=== PATIENT | female | born 2000 | race Caucasian/White ===

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

== ENCOUNTER → 2022-01-26 15:35 | Outpatient (BNVA) | payer BC, SELFPAY | PROVIDERS: PCP Family Medicine; Visit Provider Registered Nurse Neonatal Intensive Care | DX: R05.9 Cough, unspecified (principal); J02.9 Acute pharyngitis, unspecified | CPT/HCPCS: 87071; 87880 ==

== ENCOUNTER 2022-03-27 19:20 | Emergency (ER) | payer BC, MEDICAID, SELFPAY ==
[2022-03-27 19:25] VITALS: BP 124/74; PULSE 110; RESP 16; TEMP 36.6; O2SAT 99
[2022-03-27] MEDS: ondansetron 2 mg/ML SDV 2 mL 4 MG IVP ×2 (20:10→22:55)
[2022-03-27 20:15] LABS: Basophils % 0.2 %; Eosinophils % 0.1 %; Hematocrit 41.7 % (37.0-47.0); Lymphocytes # 1.1 10^3/uL (1.5-6.5); Lymphocytes % 6.2 %; Mean Corpuscular HGB Conc 33.6 g/dL (30.0-36.0); Mean Corpuscular Hemoglobin 31.7 pg (28.0-34.0); Mean Corpuscular Volume 94.6 fl (81-99); Mean Platelet Volume 9.8 fL (7.4-10.4); Monocytes # 1.3 10^3/uL (0.2-0.9); Monocytes % 7.7 %; Neutrophils % 85.4 %; Nucleated Red Blood Cells % 0 %; Platelet Count 281 10^3/cmm (130-400); Red Blood Count 4.41 10^6/uL (4.1-5.3); Red Cell Distribution Width 10.7 % (12.1-15.1)
[2022-03-27] MEDS: sodium chloride 0.9% 1,000 ML 999 ML IV ×3 (20:16→23:40)
--- NOTE | 2022-03-27 20:23 | CTR_ITS ---
PROCEDURE INFORMATION: Exam: CT Abdomen And Pelvis With Contrast Exam date and time: 03/27/2022 8:52 PM Age: 21 years old Clinical indication: Vomiting; Abdominal pain; Generalized; Additional info: Abdominal pain, vomiting TECHNIQUE: Imaging protocol: Computed tomography of the abdomen and pelvis with contrast. Radiation optimization: All CT scans at this facility use at least one of these dose optimization techniques: automated exposure control; mA and/or kV adjustment per patient size (includes targeted exams where dose is matched to clinical indication); or iterative reconstruction. Contrast material: OMNI 350; Contrast volume: 75 ml; Contrast route: INTRAVENOUS (IV); Other protocol: This patient has received 0 known CTs and 0 known cardiac nuclear medicine studies in the 12 months prior to the current study. COMPARISON: No relevant prior studies available. RADIATION DOSE METRICS: Total DLP (mGy-cm): 327.36 FINDINGS: Lungs: Visualized lungs are clear. Pleural spaces: No pleural effusion. Liver: The visualized liver is unremarkable. Gallbladder and bile ducts: The gallbladder is unremarkable. No dilatation of the visualized bile ducts. Pancreas: The pancreas is unremarkable. No pancreatic ductal dilatation. Spleen: The visualized spleen is unremarkable. Small splenule in the left upper quadrant. Adrenal glands: The right and left adrenal glands are unremarkable. Kidneys and ureters: The right and left kidneys are unremarkable. The right and left ureters are unremarkable. Stomach and bowel: Fluid within the small bowel and colon without evidence of bowel wall thickening. Appendix: The appendix is visualized and is unremarkable. No findings to suggest acute appendicitis. Intraperitoneal space: No free intraperitoneal air. No ascites. No loculated fluid collections to suggest an abscess. Vasculature: No evidence for aortic aneurysm or aortic dissection. Lymph nodes: No lymphadenopathy. Urinary bladder: The bladder is incompletely filled, which can limit evaluation. No focal abnormality in the bladder however. Reproductive: Multiple subcentimeter follicles in both right and left ovaries. Dominant follicle in the left ovary measuring 1.5 x 1.1 cm (series 3, image 66). The uterus is unremarkable. Bones/joints: No acute fracture. Soft tissues: No acute abnormality in the extra-abdominal soft tissues. There is a soft tissue focus posterior to the rectum and anus extending superiorly to the level of the sacrococcygeal junction and extending from the midline into the right the pelvis, this measures 8.0 x 2.5 x 5.5 cm (series 6, image 32 in series 3, image 51). CT/CT abdomen pelvis w con* [id number] IMPRESSION: 1. Fluid within the small bowel and colon without evidence of bowel wall thickening. This may reflect viral gastroenteritis in the appropriate clinical situation. 2. Soft tissue focus posterior to the rectum and anus extending superiorly to the level of the sacrococcygeal junction and extending from the midline into the right the pelvis. Etiology is uncertain, a soft tissue mass cannot be ruled out however. Recommend clinical correlation. Further evaluation with MRI of the pelvis without and with contrast on a nonemergent basis may be obtained if it will change clinical management, and the patient has no contraindications. 3. Incidental/nonacute findings are listed in the report.
--- NOTE | 2022-03-27 20:24 | ED_ITS ---
HPI - Nausea/Vomiting/Diarrhea General: Chief complaint: Nausea/Vomiting/Diarrhea Stated complaint: n/v Time Seen by Provider: 03/27/22 19:55 Source: patient History of Present Illness: 21-year-old female has been sick since around 1:30 PM after she ate some chicken Bill. She notes continued lower abdominal pain and several episodes of vomiting. No fever. Some chills. No history of belly surgery. She is not . MD elicited complaint: nausea, vomiting and abdominal pain Onset (ago): hour(s) Description of vomiting: food contents and bloody (Blood-tinged) Associated nausea: Yes Associated abdominal pain: Yes Location of pain: Periumbilical and RLQ Radiation: diffuse Pain consistency: intermittent Severity: moderate Quality: cramping and aching Exacerbating factors: vomiting and movement Relieving factors: none Associated symtoms: Reports nausea; Denies change in vision, chest pain, cough, fevers/chills, headache(s) or short of breath Review of Systems Const: Reports: chills; Denies: fever(s) Eyes: Denies: change in vision ENMT: Reports: throat pain (Burning after vomiting) Card: Denies: chest pain Resp: Denies: dyspnea, productive cough or non-productive cough GI: Reports: abdominal pain, nausea and vomiting; Denies: diarrhea Neuro: Denies: headache(s) PFS ED PFSH: Medical History Psychiatric care Social History Smoking and tobacco status: never smoked Second hand smoke exposure: No Alcohol intake: never Desire information about alcohol rehabilitation?: No Desire information about substance/drug rehabilitation?: No Physical Exam Const: COMMON NORMALS: no acute distress GENERAL APPEARANCE: cooperative; not ill appearing and not frail appearing HENMT: COMMON NORMALS: normocephalic, atraumatic and Normal external nose present HEAD & SCALP: normocephalic and atraumatic FACE & SINUS: normal facial exam and face symmetric NOSE: Normal external nose present Eye: COMMON NORMALS: Equal, round and reactive pupils present and EOMs intact bilaterally PUPIL: Yes Equal, round and reactive pupils present Neck/C-Spine: GENERAL: Yes trachea midline Chest: CHEST: Yes Symmetrical chest wall rise Resp: COMMON NORMALS: normal respiratory effort, No retractions, No use of accessory muscles and clear to auscultation bilaterally AUSCULTATION: clear to auscultation bilaterally Cardio: COMMON NORMALS: regular rate and regular rhythm RATE: regular rate RHYTHM: regular rhythm GI: COMMON NORMALS: Normal to inspection, nondistended, normoactive bowel sounds present PALPATION: Yes Tenderness to palpation present (GI) Details: LLQ and RLQ and Yes Guarding due to palpation present (GI) : COMMON NORMALS: Yes no CVA tenderness BLADDER/KIDNEY EXAM: Yes no CVA tenderness Back/Pelvis: COMMON NORMALS: no CVA tenderness Extremity: COMMON NORMALS: no pedal edema Neuro: MAGALI COMA SCALE: document GCS findings Mitchell coma scale eye opening: Spontaneous Mitchell coma scale verbal response: Orientated Mitchell coma scale motor response: Obey commands Mitchell coma scale total score: 15 SENSORY EXAM: Yes extremities (intact) Psych: COMMON NORMALS: speech normal SPEECH: Yes normal speech Skin: COMMON NORMALS: no rashes or lesions noted GENERAL SKIN EXAM: no rashes or lesions noted Course Vital Signs: Vital signs: Vital Signs Temperature 97.8 F 03/27/22 19:25 Pulse Rate 88 03/28/22 02:22 Respiratory Rate 16 03/28/22 02:22 Blood Pressure 107/63 03/28/22 02:22 Pulse Oximetry 100 03/28/22 02:22 Oxygen Delivery Me thod 03/27/22 23:00 MDM - Nausea/Vomiting/Diarrhea Medical Decision Making Vitals are stable. White blood cell count was 17. Hemoglobin 14. Liver enzymes are normal. Urinalysis is negative. Lipase is 21. CRP is only 3. CT scan shows a significant gastroenteritis with fluid in the small bowel and colon without evidence of obstruction or thickening. Vomiting has essentially stopped, she has had several episodes of diarrhea now. She has had 3 L of fluid here, and is no longer tachycardic. CT also showed a right-sided soft tissue density in her pelvis musculature. This is of unknown origin. She was told about this. Outpatient follow-up is suggested. Lab Data 03/27/22 20:05 03/27/22 20:05 Radiology Impressions Abdomen/Pelvis CT 03/27/22 20:23 IMPRESSION: 1. Fluid within the small bowel and colon without evidence of bowel wall thickening. This may reflect viral gastroenteritis in the appropriate clinical situation. 2. Soft tissue focus posterior to the rectum and anus extending superiorly to the level of the sacrococcygeal junction and extending from the midline into the right the pelvis. Etiology is uncertain, a soft tissue mass cannot be ruled out however. Recommend clinical correlation. Further evaluation with MRI of the pelvis without and with contrast on a nonemergent basis may be obtained if it will change clinical management, and the patient has no contraindications. 3. Incidental/nonacute findings are listed in the report. 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 Laboratory Results WBC 17.0 10^3/uL (4.5-13.0) H 03/27/22 20:05 RBC 4.41 10^6/uL (4.1-5.3) 03/27/22 20:05 Hgb 14.0 g/dL (11.5-15.3) 03/27/22 20:05 Hct 41.7 % (37.0-47.0) 03/27/22 20:05 MCV 94.6 fl (81-99) 03/27/22 20:05 MCH 31.7 pg (28.0-34.0) 03/27/22 20:05 MCHC 33.6 g/dL (30.0-36.0) 03/27/22 20:05 RDW 10.7 % (12.1-15.1) L 03/27/22 20:05 Plt Count 281 10^3/cmm (130-400) 03/27/22 20:05 MPV 9.8 fL (7.4-10.4) 03/27/22 20:05 Neut % (Auto) 85.4 % 03/27/22 20:05 Lymph % (Auto) 6.2 % 03/27/22 20:05 [place] % (Auto) 7.7 % 03/27/22 20:05 Eos % (Auto) 0.1 % 03/27/22 20:05 Baso % (Auto) 0.2 % 03/27/22 20:05 Neut # (Auto) 14.50 10^3/uL (1.8-8.0) H 03/27/22 20:05 Lymph # (Auto) 1.1 10^3/uL (1.5-6.5) L 03/27/22 20:05 [place] # (Auto) 1.3 10^3/uL (0.2-0.9) H 03/27/22 20:05 Eos # (Auto) 0.0 10^3/uL (0.0-0.8) 03/27/22 20:05 Baso # (Auto) 0.0 10^3/uL (0.0-0.1) 03/27/22 20:05 Nucleated RBC % (auto) 0 % 03/27/22 20:05 Nucleated RBCs # 0.0 /100WBC 03/27/22 20:05 Sodium 138 mmol/L (136-145) 03/27/22 20:05 Potassium 3.6 mmol/L (3.5-5.1) 03/27/22 20:05 Chloride 100 mmol/L (98-107) 03/27/22 20:05 Carbon Dioxide 26 mmol/L (22-29) 03/27/22 20:05 Anion Gap 15.6 (5-19) 03/27/22 20:05 BUN 16 mg/dL (6-20) 03/27/22 20:05 Creatinine 0.8 mg/dL (0.5-0.9) 03/27/22 20:05 GFR Calculation 92.4 mL/min (90-130) 03/27/22 20:05 Glucose 112 mg/dL (65-115) 03/27/22 20:05 Calculated Osmolality 288 mOsm/kg (285-295) 03/27/22 20:05 Calcium 9.6 mg/dL (8.5-10.5) 03/27/22 20:05 Total Bilirubin 0.5 mg/dL (0.15-1.2) 03/27/22 20:05 AST 21 U/L (0-32) 03/27/22 20:05 ALT 11 U/L (0-33) 03/27/22 20:05 Alkaline Phosphatase 61 U/L (35-105) 03/27/22 20:05 C-Reactive Protein 3.0 mg/L (0.0-4.9) 03/27/22 20:05 Total Protein 7.3 g/dL (6.6-8.7) 03/27/22 20:05 Albumin 4.8 g/dL (3.5-5.2) 03/27/22 20:05 Globulin 2.5 g/dL (1.3-4.6) 03/27/22 20:05 Lipase 21 U/L (13-60) 03/27/22 20:05 HCG, Qual Negative (Negative) 03/27/22 20:05 Urine Color Colorless (Yellow) 03/27/22 23:12 Urine Appearance Clear (CLEAR) 03/27/22 23:12 Urine pH 5 (5-7) 03/27/22 23:12 Ur Specific [place] 1.010 (1.005-1.030) 03/27/22 23:12 Urine Protein Neg (Negative) 03/27/22 23:12 Urine Glucose (UA) Norm (Normal) 03/27/22 23:12 Urine Ketones 1+ (Negative) H 03/27/22 23:12 Urine Blood Neg (Negative) 03/27/22 23:12 Urine Nitrate Negative (Negative) 03/27/22 23:12 Urine Bilirubin Neg (Negative) 03/27/22 23:12 Urine Urobilinogen Neg mg/dL (Negative) 03/27/22 23:12 Ur Leukocyte Esterase Negative (Negative) 03/27/22 23:12 Urine Opiates Screen Negative ng/mL (Negative) 03/27/22 23:12 Ur Barbiturates Screen Negative ng/mL (Negative) 03/27/22 23:12 Ur Phencyclidine Scrn Negative ng/mL (Negative) 03/27/22 23:12 Ur Amphetamines Screen Negative ng/mL (Negative) 03/27/22 23:12 U Benzodiazepines Scrn Negative ng/mL (Negative) 03/27/22 23:12 Urine Cocaine Screen Negative ng/mL (Negative) 03/27/22 23:12 U Marijuana (THC) Screen Negative ng/mL (Negative) 03/27/22 23:12 Discharge Plan Discharge Patient Disposition: Home Clinical Impression: Gastroenteritis Condition: Stable Prescriptions: New ondansetron 4 mg film 4 mg PO DAILY PRN (Reason: nausea and vomiting) Qty: 10 0RF Lomotil 2.5-0.025 mg tablet 1 tab PO Q8H PRN (Reason: diarrhea) Qty: 14 0RF No Action amoxicillin 500 mg tablet 500 mg PO BID 10 Days Qty: 20 0RF Discharge Orders: Discharge ED (Routine); Ordered 03/28/22 Ordered By: David Pizarro Referrals: Case Hawkins DO [Primary Care Provider] - 4-7 days Patient Instructions: Dehydration (ED), Gastroenteritis (ED), Opioid Safety, Pain Management Activity Restrictions/Additional Instructions: Take the nausea medication scheduled every 4 hours while awake for the next 24 hours, then as needed following. Take diarrhea medication as directed. Only clear liquids for the next 24 hours, then you may add food. Return for worsening symptoms despite treatment. Incidentally and unrelated to your illness, your CAT scan this evening showed density/swelling in the musculature of your pelvis. This may be related to muscle injury, but if persists, could warrant further outpatient testing. Talk to your doctor this coming week about it Coding Level of Care Code ED Teacher Instrumental for Vandana Calle
[2022-03-27] MEDS: metoclopramide 5 mg/mL SDV 2 mL 10 MG IVP (20:31)
[2022-03-27] MEDS: famotidine 20 mg/2 mL INJ IVP (20:31)
[2022-03-27 20:37] LABS: HCG, Serum Qual Negative (Negative)
[2022-03-27 20:38] LABS: Alanine Aminotransferase 11 U/L (0-33); Albumin Level 4.8 g/dL (3.5-5.2); Alkaline Phosphatase 61 U/L (35-105); Anion Gap 15.6 (5-19); Aspartate Amino Transferase 21 U/L (0-32); Blood Urea Nitrogen 16 mg/dL (6-20); Calcium 9.6 mg/dL (8.5-10.5); Carbon Dioxide 26 mmol/L (22-29); Chloride 100 mmol/L (98-107); Globulin 2.5 g/dL (1.3-4.6); Glomerular Filtration Rate 92.4 mL/min (90-130); Glucose 112 mg/dL (65-115); Lipase 21 U/L (13-60); Osmolality Calculated 288 mOsm/kg (285-295); Potassium 3.6 mmol/L (3.5-5.1); Sodium 138 mmol/L (136-145); Total Bilirubin 0.5 mg/dL (0.15-1.2); Total Protein 7.3 g/dL (6.6-8.7)
[2022-03-27 20:42] VITALS: BP 125/90; PULSE 88; RESP 16; O2SAT 96
[2022-03-27] MEDS: iohexol 350 mg/mL 500 mL Btl (per mL) IV (20:49)
[2022-03-27 21:00] VITALS: BP 124/84; PULSE 95; RESP 16; O2SAT 99
[2022-03-27] MEDS: haloperidol inj 5 mg/mL INJ 1 mL 3 MG IVP ×2 (22:19→23:39)
[2022-03-27 23:00] VITALS: BP 116/93; PULSE 92; RESP 17; O2SAT 98
[2022-03-27 23:17] LABS: Add Urine Microscopic? NO; Charge for UA Resulting for Rev
[2022-03-27] MEDS: morphine 4 mg/mL SDV 1 mL IVP (23:39)
[2022-03-27 23:47] LABS: Amphetamines Screen Urine Negative (Negative); Barbiturates Screen Urine Negative (Negative); Benzodiazepines Screen Urine Negative (Negative); Cocaine Screen Urine Negative (Negative); Opiate Screen Urine Negative (Negative); PCP Screen Urine Negative (Negative); THC Screen Urine Negative (Negative)
[2022-03-28 00:14] LABS: Bilirubin Urine Neg (Negative); Blood Urine Neg (Negative); Glucose Urine UA Norm (Normal); Ketones Urine 1+ (Negative); Leukocyte Esterase Urine Negative (Negative); Nitrate Urine Negative (Negative); Protein Urine Neg (Negative); Urine Appearance Clear (CLEAR); Urine Color Colorless (Yellow); Urobilinogen Urine Neg (Negative); pH Urine 5 (5-7)
[2022-03-28 01:00] VITALS: BP 102/56; PULSE 83; RESP 19; O2SAT 95
[2022-03-28 02:22] VITALS: BP 107/63; PULSE 88; RESP 16; O2SAT 100
== END 2022-03-28 02:31 | disposition home or self-care (01) ==
PROVIDERS: Emergency Provider Emergency Medicine; PCP Family Medicine
DX: K52.9 Noninfective gastroenteritis and colitis, unspecified (principal)
CPT/HCPCS: 74177; 80053; 80306; 81003; 83690; 84703; 85025; 86140; 96361; 96374; 96375; 96376; 99285; J1630; J2270; J2405; J2765; J3490; J7030; Q9967

== ENCOUNTER 2022-10-23 17:59 | Emergency (ER) | payer BC, MEDICAID, SELFPAY ==
[2022-10-23 18:07] VITALS: BP 109/72; PULSE 74; RESP 16; TEMP 36.6; O2SAT 99; BMI 18.3
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
--- NOTE | 2022-10-23 20:14 | W.ED.HEATRA ---
HPI - Head Injury General: Chief complaint: Head Injury Stated complaint: Head Injury\N Time Seen by Provider: 10/23/22 20:02 History of Present Illness: 22-year-old female comes in today for complaints of headache and nausea. Patient reports 1 week ago she did hit her head against the bed, and since then she has had persistent and recurrent headaches. Patient appears nontoxic. Patient appears no acute distress. Patient reports some light sensitivity and nausea. Patient denies any history of migraine headaches but has history of reflux and gastritis. Associated symptoms: Reports nausea Review of Systems General: Reports: 10 or more systems reviewed and unremarkable except in HPI and below Const: Denies: fever(s) GI: Reports: nausea Neuro: Reports: headache(s) PFS ED PFSH: Medical History (Updated 10/23/22 @ 20:38 by ARIADNA Lawson) Generalized anxiety disorder MDD (major depressive disorder) No pertinent past medical history Psychiatric care Surgical History (System 05/22/22 @ 15:26 by Gia Oshea) No pertinent past surgical history Social History (System 05/22/22 @ 15:26 by Gia Oshea) Smoking and tobacco status: never smoked Second hand smoke exposure: No Alcohol intake: never Desire information about alcohol rehabilitation?: No Substance/Drug Use: never Desire information about substance/drug rehabilitation?: No Female Reproductive History: Spontaneous abortions: No Physical Exam Const: COMMON NORMALS: alert HENMT: COMMON NORMALS: normocephalic HEAD & SCALP: normocephalic MOUTH: Normal oral and palatal mucosa present Eye: GENERAL EYE: appearance normal, both eyes and all related structures Neck/C-Spine: COMMON NORMALS: full ROM Resp: COMMON NORMALS: normal respiratory effort Cardio: COMMON NORMALS: regular rate RATE: regular rate Extremity: COMMON NORMALS: normal to inspection Neuro: SENSORIUM/ORIENTATION: Yes alert Skin: COMMON NORMALS: turgor normal GENERAL SKIN EXAM: turgor normal Course Vital Signs: Vital signs: Vital Signs Temperature 97.9 F 10/23/22 18:07 Pulse Rate 74 10/23/22 18:07 Respiratory Rate 16 10/23/22 18:07 Blood Pressure 109/72 10/23/22 18:07 Pulse Oximetry 99 10/23/22 18:07 MDM - Head Injury Medcial Decision Making 22-year-old female comes in today for complaints of headache and light sensitivity. On exam patient appears nontoxic. Pupils are equal and reactive. No obvious head injury is noted. Patient moves all extremities well. Vital signs are normal. Differential diagnosis includes but not limited to intracranial bleeding, concussion syndrome, postconcussion headache. CT of the head was unremarkable. Reviewed exam with patient and mother with recommendations for treatment and follow-up. Patient was given some metoclopramide as needed for nausea and vomiting. Patient was recommended to follow-up with primary care in 3 to 5 days for recheck. Lab Data Radiology Impressions Head CT 10/23/22 20:02 IMPRESSION: No acute intracranial abnormality. Discharge Plan Discharge Patient Disposition: Home Clinical Impression: Postconcussion syndrome Condition: Stable Prescriptions: New metoclopramide HCl 10 mg tablet 10 mg PO Q6H PRN (Reason: nausea and vomiting) Qty: 10 0RF No Action aripiprazole 5 mg tablet 2.5 mg PO .qhs 30 Days Qty: 30 3RF Discharge Orders: Discharge ED (Routine); Ordered 10/23/22 Ordered By: Dieudonne Betancourt Referrals: Case Hawkins DO [Primary Care Provider] - Discharge Diet: Usual diet Discharge Activity: Increase activity as tolerated Patient Instructions: Post Concussion Syndrome (ED) Activity Restrictions/Additional Instructions: Light activity. Drink plenty of water and fluids. Use metoclopramide as needed for nausea and headache. Use ibuprofen or acetaminophen otherwise for headache. Follow-up with primary care in 3 to 5 days for recheck. Return to ED for new concerns. Coding Level of Care Code ED Wet Machine Operator for Vandana Calle
== END 2022-10-23 20:49 | disposition home or self-care (01) ==
PROVIDERS: Emergency Provider Nurse Practitioner Family; PCP Family Medicine
DX: F07.81 Postconcussional syndrome (principal)
CPT/HCPCS: 70450; 99284

== ENCOUNTER → 2023-03-18 11:05 | Outpatient (BNVA) | payer BC, MEDICAID, SELFPAY | PROVIDERS: PCP Family Medicine; Visit Provider Nurse Practitioner Family | DX: R05.9 Cough, unspecified (principal); J10.1 Influenza due to other identified influenza virus with other respiratory manifestations | CPT/HCPCS: 87400; 87426 ==

== ENCOUNTER → 2023-05-05 13:00 | Outpatient (BNVA) | payer BC, MEDICAID, SELFPAY | PROVIDERS: PCP Family Medicine; Visit Provider Nurse Practitioner | DX: R05.9 Cough, unspecified (principal); J06.9 Acute upper respiratory infection, unspecified | CPT/HCPCS: 87400; 87426 ==

== ENCOUNTER → 2023-05-28 09:45 | Outpatient (BNVA) | payer SELFPAY | PROVIDERS: PCP Family Medicine; Visit Provider Family Medicine Adult Medicine | DX: J02.9 Acute pharyngitis, unspecified (principal); J30.9 Allergic rhinitis, unspecified | CPT/HCPCS: 87880 ==

== ENCOUNTER 2023-06-05 12:02 | Emergency (ER) | payer BC, SELFPAY ==
[2023-06-05 12:17] VITALS: BP 107/74; PULSE 83; RESP 16; TEMP 36.8; O2SAT 100
--- NOTE | 2023-06-05 12:24 | ED_ITS ---
HPI - General Adult General: Chief complaint: General Medical Stated complaint: Sore Throat Time Seen by Provider: 06/05/23 12:24 Source: patient Mode of arrival: ambulatory History of Present Illness: 22-year-old female seen earlier in the [facility] in the outpatient setting had a rapid strep test was negative. Was started on Zithromax has not had any improvement. Onset (ago): day(s) Relieving factors: none Exacerbating factors: none Associated symptoms: Deny chest pain, confusion, cough, diaphoresis, decreased appetite, dyspnea, fevers/chills, headache(s), malaise, nausea, rash, palpitations, seizures, short of breath, syncope, vomiting or weakness Treatments prior to arrival: other (5-day course of Zithromax) Review of Systems Const: Denies: malaise or diaphoresis Card: Denies: chest pain, palpitations or syncope Resp: Denies: dyspnea GI: Denies: abdominal pain, nausea or vomiting : Denies: dysuria, urinary frequency or urinary urgency Musc: Denies: neck pain or back pain Skin/Breast: Denies: rash Neuro: Denies: headache(s) or confusion PFSH ED PFSH: Medical History Allergic rhinitis due to allergen Acute pharyngitis Allergic rhinitis due to allergen MDD (major depressive disorder) Generalized anxiety disorder Psychiatric care No pertinent past medical history Surgical History No pertinent past surgical history Social History Smoking and tobacco/nicotine status: never used tobacco/nicotine Second hand smoke exposure: No Alcohol intake: never Substance/Drug Use: never Female Reproductive History: Spontaneous abortions: No Physical Exam Const: GENERAL APPEARANCE: cooperative and comfortable ORIENTATION/CONSCIOUSNESS: Yes awake, Yes oriented to person, Yes oriented to place and Yes oriented to time HENMT: COMMON NORMALS: normocephalic, atraumatic and hearing grossly normal bilaterally HEAD & SCALP: normocephalic and atraumatic OTHER: Posterior pharynx reddened slight membranous coating to the pharyngeal tonsils mucousy to white Resp: COMMON NORMALS: normal respiratory effort, No retractions, No use of accessory muscles and clear to auscultation bilaterally AUSCULTATION: clear to auscultation bilaterally Cardio: COMMON NORMALS: regular rate, regular rhythm and No murmurs present (Cardio) RATE: regular rate RHYTHM: regular rhythm Extremity: COMMON NORMALS: normal to inspection, capillary refill normal, no clubbing, cyanosis or edema, no calf tenderness and no pedal edema Neuro: SENSORIUM/ORIENTATION: Yes oriented to person, Yes oriented to place an d Yes oriented to time Skin: COMMON NORMALS: no rashes or lesions noted GENERAL SKIN EXAM: no rashes or lesions noted Course Vital Signs: Vital signs: Vital Signs Temperature 98.2 F 06/05/23 12:17 Pulse Rate 83 06/05/23 12:17 Respiratory Rate 16 06/05/23 12:17 Blood Pressure 107/74 06/05/23 12:17 Pulse Oximetry 100 06/05/23 12:17 Oxygen Delivery Me thod Room Air 06/05/23 12:17 MDM - General Adult Medical Decision Making Infectious mononucleosis supportive cares given prednisone taper for her pharyngitis symptoms follow-up with primary care doctor as needed Medical Records I reviewed the patient's medical records. Lab Data I reviewed the patient's lab results. Laboratory Results Monoscreen Positive (Negative) H 06/05/23 12:42 Group A Strep Rapid Negative (Negative) 06/05/23 12:21 All radiology interpretation(s) finalized by discharge Discharge Plan Discharge Patient Disposition: Home Clinical Impression: Infectious mononucleosis Condition: Stable Prescriptions: New Medrol (Omkar) 4 mg tablets,dose pack See Rx Instructions .ROUTE .COMPLEX Qty: 21 0RF Rx Instructions: orally per package directions No Action ondansetron 4 mg tablet,disintegrating 4 mg PO Q6H PRN (Reason: nausea and vomiting) Qty: 10 0RF promethazine-DM 6.25-15 mg/5 mL syrup 5 ml PO Q4H PRN (Reason: cough) Qty: 118 0RF Rx Instructions: Do not exceed more than 30ml/24hour period (6 doses) aripiprazole 5 mg tablet 2.5 mg PO .qhs 30 Days Qty: 30 3RF azithromycin 250 mg tablet See Rx Instructions PO .COMPLEX Qty: 6 0RF Rx Instructions: For 250 mg dose pack: take 500 mg today (day 1), then 250 mg for 4 days (days 2-5) PO Chloraseptic Max 15-10 mg lozenge 1 matthew mucous membrane .q 2 hr Qty: 15 0RF desloratadine 5 mg tablet 5 mg PO DAILY Qty: 90 0RF metoclopramide HCl 10 mg tablet 10 mg PO Q6H PRN (Reason: nausea and vomiting) Qty: 10 0RF Discharge Orders: Discharge ED (Routine); Ordered 06/05/23 Ordered By: Reggie Hamilton Referrals: Case Hawkins DO [Primary Care Provider] - Discharge Diet: Usual diet Discharge Activity: Increase activity as tolerated Patient Instructions: Mononucleosis (ED), Opioid Safety, Pain Management Coding Level of Care Code ED Manager Balance for Vandana Calle
[2023-06-05 12:58] LABS: Rapid Strep A Test Negative (Negative)
[2023-06-05 13:08] LABS: Monoscreen Positive (Negative)
== END 2023-06-05 13:39 | disposition home or self-care (01) ==
PROVIDERS: Emergency Provider Family Medicine; PCP Family Medicine
DX: B27.90 Infectious mononucleosis, unspecified without complication (principal)
CPT/HCPCS: 36415; 86308; 87081; 87880; 99283

== ENCOUNTER 2024-02-23 18:44 | Emergency (ER) | payer BC, MEDICAID, SELFPAY ==
[2024-02-23 18:50] VITALS: BP 119/78; PULSE 78; RESP 16; TEMP 36.7; O2SAT 100
--- NOTE | 2024-02-23 18:57 | ECG_ITS ---
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 Measurements Intervals Sweet Rate: 74 P: 37 TX: 148 QRS: 64 QRSD: 86 T: 45 QT: 361 QTc: 402 Interpretive Statements SINUS RHYTHM POSSIBLE RIGHT VENTRICULAR CONDUCTION DELAY [RSR (QR) IN V1/V2] ST DEVIATION AND MODERATE T-WAVE ABNORMALITY, CONSIDER ANTERIOR ISCHEMIA [-0.1+ mV T-WAVE IN V3/V4] INTERPRETATION BASED ON A DEFAULT AGE OF 40 YEARS No previous ECG available for comparison Electronically Signed On 02-24-2024 18:22:08 RELEASE SPECIALIST by Dawit Mello M.D. [email or web address]
--- NOTE | 2024-02-23 19:28 | XRR_ITS ---
PROCEDURE INFORMATION: Exam: XR Chest Exam date and time: 02/23/2024 9:34 PM Age: 23 years old Clinical indication: Pain; Chest pressure; Additional info: Chest pain TECHNIQUE: Imaging protocol: Radiologic exam of the chest. Views: 1 view. COMPARISON: CR XR chest 1V portable [id number] 08/24/2019 8:24 PM FINDINGS: Lungs: No consolidation, mass, or pulmonary edema. Pleural spaces: No pneumothorax or pleural effusion. Heart/Mediastinum: Cardiomediastinal silhouette is within normal limits. Bones/joints: No acute osseous abnormality. XR/XR chest 1V portable [id number] IMPRESSION: No acute findings.
[2024-02-23 20:25] LABS: Eosinophils % 0.3 %; Hematocrit 38.6 % (36-47); Lymphocytes # 2.1 10^3/uL (0.8-4.8); Mean Corpuscular HGB Conc 33.9 g/dL (30-55); Mean Corpuscular Hemoglobin 31.5 pg (27-33); Mean Corpuscular Volume 92.8 fl (85-98); Mean Platelet Volume 10.2 fL (7.4-10.4); Monocytes # 0.6 10^3/uL (0.2-0.9); Monocytes % 7.3 %; Neutrophils # 5.11 10^3/uL (1.8-7.7); Neutrophils % 65.1 %; Nucleated Red Blood Cells % 0 %; Platelet Count 253 10^3/cmm (157-399); Red Blood Count 4.16 10^6/uL (3.85-5.65); Red Cell Distribution Width 10.9 % (12.1-15.1); White Blood Count 7.84 10^3/uL (3.29-11.43)
[2024-02-23 20:43] LABS: D Dimer <= 0.27 ug/mLFEU (0-0.59)
[2024-02-23 20:48] LABS: Troponin(5th) Baseline < 6 ng/L (0-10)
[2024-02-23 21:01] LABS: Alanine Aminotransferase 9 U/L (0-33); Albumin Level 4.7 g/dL (3.5-5.2); Alkaline Phosphatase 61 U/L (35-105); Aspartate Amino Transferase 15 U/L (0-32); Blood Urea Nitrogen 13 mg/dL (6-20); Calcium 9.7 mg/dL (8.5-10.5); Carbon Dioxide 29 mmol/L (22-29); Chloride 102 mmol/L (98-107); Creatinine Clr Calc Pharmacy 99.5678; Globulin 2.5 g/dL (1.3-4.6); Glomerular Filtration Rate 90.5 mL/min (90-130); Glucose 84 mg/dL (65-115); Osmolality Calculated 289 mOsm/kg (285-295); Sodium 140 mmol/L (136-145); Thyroid Stimulating Hormone 0.74 uIU/mL (0.27-4.20); Total Bilirubin 0.6 mg/dL (0.15-1.2); Total Protein 7.2 g/dL (6.6-8.7)
--- NOTE | 2024-02-23 22:05 | ED_ITS ---
HPI - Chest Pain 2 General: Chief Complaint: Chest Pain Stated Complaint: Chest Pressure /pain Time Seen by Provider: 02/23/24 21:32 Source: patient Mode of arrival: ambulatory Limitations: no limitations History of Present Illness: Patient is a 23-year-old female with no pertinent past medical history reporting to the emergency department complaining of left chest pain greater than a week. States that she thought it was anxiety/panic, she has a history of this but is concerned about how long it has been present. Overall states it has been intermittent, when she feels that she is also having shortness of breath. Denies any chest trauma. Denies any personal cardiac history, states her dad has a history of open heart surgery and they wanted her checked out for chest pain. She is non-smoker, does not vape. She does not take any medications, has not tried any medications for the pain. States it does not radiate, is a pressure sensation. Overall has not changed in intensity since onset, she has not noticed any specific alleviating or exacerbating factors. Her vitals normal at this time. MD complaint: chest pain Onset (ago): week(s) Timing of current episode: episodic Prior episodes: Yes Onset: during rest Pain location: left chest Pain radiation: none Severity: mild Quality: other (Pressure) Relieving factors: nothing Exacerbating factors: nothing Associated symptoms: Reports dyspnea; Deny abdominal pain, fever(s), nausea, palpitations or vomiting Treatment prior to arrival: none Risk Factors: Coronary artery disease risk factors: none Thoracic aortic dissection risk factors: none Related Data Previous Rx's Medication Instructions Recorded aripiprazole 5 mg tablet 2.5 mg (1/2 x 5 mg) PO .qhs 30 05/21/22 days #30 tabs metoclopramide HCl 10 mg tablet 10 mg PO Q6H PRN nausea and 10/23/22 vomiting #10 tabs ondansetron 4 mg disintegrating 4 mg PO Q6H PRN nausea and 05/05/23 tablet vomiting #10 tabs promethazine-DM 6.25 mg-15 mg/5 mL 5 ml PO Q4H PRN cough #118 mL 05/05/23 oral syrup azithromycin 250 mg tablet See Rx Instructions PO .COMPLEX #6 05/28/23 tabs benzocaine 15 mg-menthol 10 mg 1 matthew mucous membrane .q 2 hr sore 05/28/23 lozenges (Chloraseptic Max) throat #15 ea desloratadine 5 mg tablet 5 mg PO DAILY allergies/drainage 05/28/23 #90 tabs methylprednisolone 4 mg tablets in See Rx Instructions PO .COMPLEX 06/05/23 a dose pack (Medrol (Omkar)) #21 ea Allergies Allergy/AdvReac Type Severity Reaction Status Date / Time No Known Allergies Allergy Verified 02/23/24 18:57 Review of Systems 2 General: Reports: 10 or more systems reviewed and unremarkable except in HPI and below Const: Denies: fever(s), chills or fatigue Eyes: Denies: change in vision ENMT: Denies: throat pain, ear or mastoid pain or nasal discharge Card: Reports: chest pain; Denies: palpitations, swelling of feet/ankles or lightheadedness Resp: Reports: dyspnea GI: Denies: abdominal pain, nausea, vomiting, diarrhea or constipation : Denies: flank pain, difficulty voiding, dysuria or urinary frequency Musc: Denies: neck pain, back pain or joint pain Skin/Breast: Denies: rash Neuro: Denies: headache(s), numbness in extremities or weakness in extremities PFSH ED 2 PFSH: Medical History Allergic rhinitis due to allergen Acute pharyngitis Allergic rhinitis due to allergen MDD (major depressive disorder) Generalized anxiety disorder No pertinent past medical history Surgical History No pertinent past surgical history Social History Smoking and tobacco/nicotine status: never used tobacco/nicotine Second hand smoke exposure: No Alcohol intake: never Substance/Drug Use: never Female Reproductive History: Date of last menstrual period: 02/16/24 S pontaneous abortions: No Physical Exam 2 Const: COMMON NORMALS: no acute distress and no limitations GENERAL APPEARANCE: cooperative, well developed and anxious NUTRITIONAL APPEARANCE: t hin ORIENTATION/CONSCIOUSNESS: Yes awake HENMT: COMMON NORMALS: normocephalic, atraumatic and hearing grossly normal bilaterally HEAD & SCALP: normocephalic and atraumatic Eye: COMMON NORMALS: Equal, round and reactive pupils present, EOMs intact bilaterally and conjunctivae normal CONJUNCTIVA: Yes conjunctivae normal P UPIL: Yes Equal, round and reactive pupils present Neck/C-Spine: COMMON NORMALS: full ROM, supple and no JVD Chest: COMMONS NORMALS: normal inspection of the chest and normal palpation of entire chest wall Resp: COMMON NORMALS: normal respiratory effort, No retractions, No use of accessory muscles and clear to auscultation bilaterally AUSCULTATION: clear to auscultation bilaterally Cardio: COMMON NORMALS: no JVD, regular rate, regular rhythm, No clicks present (Cardio), No murmurs present (Cardio) and No rub (Cardio) RATE: r egular rate RHYTHM: regular rhythm GI: COMMON NORMALS: Normal to inspection, nondistended, normoactive bowel sounds present, Soft to palpation and non-tender AUSCULTATION: Yes normoactive bowel sounds PALPATION: Yes Soft to palpation RECTAL EXAM: d eferred Extremity: COMMON NORMALS: normal to inspection, full ROM and capillary refill normal Psych: COMMON NORMALS: mental status grossly normal and Normal thought process present THOUGHT PROCESS: Normal thought process present Skin: COMMON NORMALS: no rashes or lesions noted GENERAL SKIN EXAM: no rashes or lesions noted Course 2 Vital Signs: Vital signs: Vital Signs Temperature 98.1 F 02/23/24 18:50 Pulse Rate 66 02/23/24 22:12 Respiratory Rate 16 02/23/24 18:50 Blood Pressure 117/65 02/23/24 22:12 Pulse Oximetry 97 02/23/24 22:12 Oxygen Delivery Me thod Room Air 02/23/24 18:50 MDM - Chest Pain Medical Decision Making Patient chest pain intermittent for the past week. Has had episodes before, never this long. History of anxiety and panic attacks. Does not take any medications, states she does not like to take medications. Physical exam unremarkable. All of her lab work normal, this includes CBC, CMP, D-dimer, troponin, and thyroid. Chest x-ray unremarkable. EKG normal sinus rhythm no acute findings. I suspect anxiety/panic as a source of her pain, she states that just knowing that it is not her heart makes her feel better and she is not having pain at this time. Encouraged her to follow-up with primary care for further outpatient management, return with recurrence of the pain or if anything changes. She agrees with this plan will be discharged home Lab Data 02/23/24 19:41 02/23/24 19:41 Laboratory Results WBC 7.84 10^3/uL (3.29-11.43) 02/23/24 19:41 RBC 4.16 10^6/uL (3.85-5.65) 02/23/24 19:41 Hgb 13.10 g/dL (11.27-16.99) 02/23/24 19:41 Hct 38.6 % (36-47) 02/23/24 19:41 MCV 92.8 fl (85-98) 02/23/24 19:41 MCH 31.5 pg (27-33) 02/23/24 19:41 MCHC 33.9 g/dL (30-55) 02/23/24 19:41 RDW 10.9 % (12.1-15.1) L 02/23/24 19:41 Plt Count 253 10^3/cmm (157-399) 02/23/24 19:41 MPV 10.2 fL (7.4-10.4) 02/23/24 19:41 Neut % (Auto) 65.1 % 02/23/24 19:41 Lymph % (Auto) 27.0 % 02/23/24 19:41 Antelope % (Auto) 7.3 % 02/23/24 19:41 Eos % (Auto) 0.3 % 02/23/24 19:41 Baso % (Auto) 0.0 % 02/23/24 19:41 Neut # (Auto) 5.11 10^3/uL (1.8-7.7) 02/23/24 19:41 Lymph # (Auto) 2.1 10^3/uL (0.8-4.8) 02/23/24 19:41 [place]elope # (Auto) 0.6 10^3/uL (0.2-0.9) 02/23/24 19:41 Eos # (Auto) 0.0 10^3/uL (0.0-0.8) 02/23/24 19:41 Baso # (Auto) 0.0 10^3/uL (0.0-0.1) 02/23/24 19:41 Nucleated RBC % (auto) 0 % 02/23/24 19:41 Nucleated RBCs # 0.0 /100WBC 02/23/24 19:41 D-Dimer <= 0.27 ug/mLFEU (0-0.59) 02/23/24 19:41 Sodium 140 mmol/L (136-145) 02/23/24 19:41 Potassium 4.0 mmol/L (3.5-5.1) 02/23/24 19:41 Chloride 102 mmol/L (98-107) 02/23/24 19:41 Carbon Dioxide 29 mmol/L (22-29) 02/23/24 19:41 Anion Gap 13.0 (5-19) 02/23/24 19:41 BUN 13 mg/dL (6-20) 02/23/24 19:41 Creatinine 0.8 mg/dL (0.5-0.9) 02/23/24 19:41 GFR Calculation 90.5 mL/min (90-130) 02/23/24 19:41 Glucose 84 mg/dL (65-115) 02/23/24 19:41 Calculated Osmolality 289 mOsm/kg (285-295) 02/23/24 19:41 Calcium 9.7 mg/dL (8.5-10.5) 02/23/24 19:41 Total Bilirubin 0.6 mg/dL (0.15-1.2) 02/23/24 19:41 AST 15 U/L (0-32) 02/23/24 19:41 ALT 9 U/L (0-33) 02/23/24 19:41 Alkaline Phosphatase 61 U/L (35-105) 02/23/24 19:41 Troponin T Baseline < 6 ng/L (0-10) 02/23/24 19:41 Troponin T 120 Minute 6.00 ng/L (0-10) 02/23/24 21:42 Delta Troponin T 0.40853 ABS# (0-10) 02/23/24 21:42 C-Reactive Protein 3.0 mg/L (0.0-4.9) 02/23/24 19:41 Total Protein 7.2 g/dL (6.6-8.7) 02/23/24 19:41 Albumin 4.7 g/dL (3.5-5.2) 02/23/24 19:41 Globulin 2.5 g/dL (1.3-4.6) 02/23/24 19:41 TSH 0.74 uIU/mL (0.27-4.20) 02/23/24 19:41 XR interpretation done by ED provider, pending radiology final review ED provider radiology interpretation(s): Chest x-ray not demonstrating any acute findings. Discharge Plan Discharge Patient Disposition: Home Clinical Impression: Generalized anxiety disorder with panic attacks Chest pain Qualifiers: Chest pain type: other chest pain Qualified Code(s): R07.89 - Other chest pain Condition: Stable Prescriptions: No Action ondansetron 4 mg tablet,disintegrating 4 mg PO Q6H PRN (Reason: nausea and vomiting) Qty: 10 0RF promethazine-DM 6.25-15 mg/5 mL syrup 5 ml PO Q4H PRN (Reason: cough) Qty: 118 0RF Rx Instructions: Do not exceed more than 30ml/24hour period (6 doses) aripiprazole 5 mg tablet 2.5 mg PO .qhs 30 Days Qty: 30 3RF azithromycin 250 mg tablet See Rx Instructions PO .COMPLEX Qty: 6 0RF Rx Instructions: For 250 mg dose pack: take 500 mg today (day 1), then 250 mg for 4 days (days 2-5) PO Chloraseptic Max 15-10 mg lozenge 1 matthew mucous membrane .q 2 hr Qty: 15 0RF desloratadine 5 mg tablet 5 mg PO DAILY Qty: 90 0RF metoclopramide HCl 10 mg tablet 10 mg PO Q6H PRN (Reason: nausea and vomiting) Qty: 10 0RF Medrol (Omkar) 4 mg tablets,dose pack See Rx Instructions .ROUTE .COMPLEX Qty: 21 0RF Rx Instructions: orally per package directions Discharge Orders: Discharge ED (Routine); Ordered 02/23/24 Ordered By: Karan Stauffer Patient Instructions: Chest Pain (ED) Activity Restrictions/Additional Instructions: Please follow-up with primary care for routine reevaluation. With continued pain, ibuprofen. Discussed with primary care your anxiety and potential cause of chest pain. Please return with any consistency of chest pain, worsening of pain, or other concerning symptoms you have. Coding Level of Care Code ED Payroll Officer for Vandana Calle
[2024-02-23 22:10] LABS: Troponin 5 2HR Delta 0.00001 ABS# (0-10)
[2024-02-23 22:12] VITALS: BP 117/65; PULSE 66; O2SAT 97
[2024-02-23 22:33] VITALS: BP 117/65; PULSE 60; O2SAT 99
== END 2024-02-23 22:35 | disposition home or self-care (01) ==
PROVIDERS: Emergency Medicine; Emergency Provider Physician Assistant
DX: R07.89 Other chest pain (principal); F41.8 Other specified anxiety disorders
CPT/HCPCS: 36415; 71045; 80053; 84443; 84484; 85025; 85378; 86140; 93005; 99285

== ENCOUNTER → 2024-04-10 11:01 | Outpatient (BNVA) | payer BC, MEDICAID, SELFPAY | PROVIDERS: Visit Provider Emergency Medicine | DX: R39.9 Unspecified symptoms and signs involving the genitourinary system (principal) | CPT/HCPCS: 81000 ==

== ENCOUNTER 2024-05-31 12:41 | Emergency (ER) | payer BC, MEDICAID, SELFPAY ==
[2024-05-31 12:56] VITALS: BP 113/71; PULSE 93; TEMP 36.8; O2SAT 100; BMI 16.2
--- NOTE | 2024-05-31 13:01 | ECG_ITS ---
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 Measurements Intervals [place] Rate: 95 P: 68 MN: 135 QRS: 73 QRSD: 80 T: 24 QT: 314 QTc: 395 Interpretive Statements SINUS RHYTHM WITH SINUS ARRHYTHMIA POSSIBLE RIGHT VENTRICULAR CONDUCTION DELAY [RSR (QR) IN V1/V2] NONSPECIFIC T-WAVE ABNORMALITY INTERPRETATION BASED ON A DEFAULT AGE OF 40 YEARS No previous ECG available for comparison Electronically Signed On 05-31-2024 21:44:52 CDT by Dawit Mello M.D. [email or web address]
[2024-05-31 13:29] LABS: Basophils % 0.1 %; Eosinophils % 0.2 %; Hematocrit 40.8 % (36-47); Lymphocytes # 1.7 10^3/uL (0.8-4.8); Lymphocytes % 18.4 %; Mean Corpuscular HGB Conc 34.6 g/dL (30-55); Mean Corpuscular Hemoglobin 31.3 pg (27-33); Mean Corpuscular Volume 90.7 fl (85-98); Mean Platelet Volume 9.5 fL (7.4-10.4); Monocytes # 0.6 10^3/uL (0.2-0.9); Monocytes % 6.1 %; Neutrophils # 7.02 10^3/uL (1.8-7.7); Neutrophils % 74.7 %; Nucleated Red Blood Cells % 0 %; Platelet Count 291 10^3/cmm (157-399); Red Cell Distribution Width 10.9 % (12.1-15.1)
--- NOTE | 2024-05-31 15:57 | USR_ITS ---
PROCEDURE INFORMATION: Exam: US First Trimester, Transabdominal and US , Transvaginal Exam date and time: 05/31/2024 4:53 PM Age: 23 years old Clinical indication: Lmp or gestational age (in weeks): 11; Other: Dizziness; ; Additional info: Dizzy/lightheaded, wants fetus evaluated LABS AND CLINICAL REPORTS: Last menstrual period start date: Unknown Gestational age (Established): 11 w 1 d Estimated due date (Established): 12/19/2024 TECHNIQUE: Imaging protocol: Real-time transabdominal obstetrical ultrasound of the maternal pelvis and a first trimester , less than 14 weeks 0 days, with image documentation. Transvaginal imaging was used for better evaluation of the fetus, adnexa, and/or cervix. COMPARISON: CT abdomen pelvis w con* [id number] 03/27/2022 8:52 PM FINDINGS: GESTATION: Gestation: A single pole is visualized. [place]-rump length measures 44 mm. Embryo/ cardiac activity (BPM): 167 bpm Extra-embryonic membranes/Placenta: Grossly unremarkable. No evidence of subchorionic hemorrhage. Amniotic/Chorionic fluid: Amniotic and extra-amniotic fluid are normal for gestational age. BIOMETRY: Gestational age (AUA): 11 weeks 2 days Estimated due date (AUA): 12/18/2024 Mean sac diameter: 52 mm MATERNAL: Intraperitoneal space: No significant pelvic free fluid. US/US OB <= 14 weeks fetus [id number] IMPRESSION: 1. Intrauterine with an estimated gestational age 11 weeks 2 days, corresponding to an estimated delivery December 18, 2024.
--- NOTE | 2024-05-31 16:04 | ED_ITS ---
HPI - Syncope 2 General: Chief Complaint: Syncope Stated Complaint: passed out (11 wks preg) Time Seen by Provider: 05/31/24 15:31 Source: patient Mode of arrival: ambulatory Limitations: no limitations History of Present Illness: Patient is a 23-year-old female, G1, , currently 11 weeks arriving to the ED complaining of a syncopal episode. Patient states she was at [facility], started to feel dizzy and lightheaded and I knew I was on the ground outside. States she has not had any issues with her up to this point. Denies any vaginal bleeding or abdominal pain at this time, but does state that she would like an ultrasound to have status of her fetus evaluated. Her OB is Dr. Lemus. to this point has been reportedly uncomplicated. She has no pertinent past medical history to report otherwise. At this time her blood pressure is normal and the rest of her vitals are normal. She is notably anxious. MD complaint: other (Syncopal episode) Onset (ago): minute(s) Prodromal symptoms: lightheaded and other (Dizzy) Witnessed: Yes - by Bystander Context: standing up Injuries sustained associated with event: none Associated symptoms: Reports lightheadedness; Deny abdominal pain, chest pain, fever(s), headache(s) or nausea History: other (Currently ) Treatments prior to arrival: none Related Data Previous Rx's ?Medication ?Instructions ?Recorded nitrofurantoin 100 mg PO BID 10 days #20 ca ps 05/31/24 monohydrate/macrocrystals 100 mg capsule (Macrobid) Allergies Allergy/AdvReac Type Severity Reaction Status Date / Time No Known Allergies Allergy Verified 05/31/24 13:10 Review of Systems 2 General: Reports: 10 or more systems reviewed and unremarkable except in HPI and below Const: Denies: fever(s), chills or fatigue Eyes: Denies: change in vision ENMT: Denies: throat pain, ear or mastoid pain or nasal discharge Card: Reports: lightheadedness and syncope; Denies: chest pain, palpitations or swelling of feet/ankles Resp: Denies: dyspnea, productive cough or wheezing GI: Denies: abdominal pain, nausea, vomiting, diarrhea or constipation : Denies: flank pain, difficulty voiding, dysuria or urinary frequency Musc: Denies: neck pain, back pain or joint pain Skin/Breast: Denies: rash Neuro: Reports: dizziness; Denies: headache(s), numbness in extremities or weakness in extremities PFSH ED 2 PFSH: Medical History Allergic rhinitis due to allergen Acute pharyngitis Allergic rhinitis due to allergen MDD (major depressive disorder) Generalized anxiety disorder No pertinent past medical history Surgical History No pertinent past surgical history Social History Smoking and tobacco/nicotine status: unknown if used tobacco/nicotine Second hand smoke exposure: No Alcohol intake: never Substance/Drug Use: never Female Reproductive History: Spontaneous abortions: No Physical Exam 2 Const: COMMON NORMALS: no acute distress, patient oriented x3 and no limitations GENERAL APPEARANCE: cooperative, well developed and anxious O RIENTATION/CONSCIOUSNESS: Yes awake, Yes oriented to person, Yes oriented to place and Yes oriented to time HENMT: COMMON NORMALS: normocephalic, atraumatic and hearing grossly normal bilaterally HEAD & SCALP: normocephalic and atraumatic Eye: COMMON NORMALS: Equal, round and reactive pupils present, EOMs intact bilaterally and conjunctivae normal CONJUNCTIVA: Yes conjunctivae normal P UPIL: Yes Equal, round and reactive pupils present Neck/C-Spine: COMMON NORMALS: full ROM, supple and no JVD Resp: COMMON NORMALS: normal respiratory effort, No retractions, No use of accessory muscles and clear to auscultation bilaterally AUSCULTATION: clear to auscultation bilaterally Cardio: COMMON NORMALS: no JVD, regular rate, regular rhythm, No clicks present (Cardio), No murmurs present (Cardio) and No rub (Cardio) RATE: r egular rate RHYTHM: regular rhythm GI: COMMON NORMALS: Normal to inspection, nondistended, normoactive bowel sounds present, Soft to palpation and non-tender AUSCULTATION: Yes normoactive bowel sounds PALPATION: Yes Soft to palpation RECTAL EXAM: d eferred Extremity: COMMON NORMALS: normal to inspection, full ROM and capillary refill normal Neuro: COMMON NORMALS: patient oriented x3, CN's II-XII intact bilaterally, moves all extremities, no focal motor deficits and no sensory deficits noted SENSORIUM/ORIENTATION: Yes oriented to person, Yes oriented to place and Yes oriented to time Psych: COMMON NORMALS: mental status grossly normal and Normal thought process present THOUGHT PROCESS: Normal thought process present Skin: COMMON NORMALS: no rashes or lesions noted GENERAL SKIN EXAM: no rashes or lesions noted Course 2 Vital Signs: Vital signs: Vital Signs Temperature 98.3 F 05/31/24 12:56 Pulse Rate 90 05/31/24 16:05 Respiratory Rate 18 05/31/24 16:05 Blood Pressure 108/56 05/31/24 16:05 Pulse Oximetry 100 05/31/24 16:05 Oxygen Delivery Me thod Room Air 05/31/24 12:56 MDM - Syncope Medical Decision Making Patient presented complaining of syncopal episode, preceded by lightheadedness and dizziness. Patient 11 weeks , first . Did not hit her head there is no injuries with the incident she reported. Time of exam only complaining of mild dizziness, vitals have been stable, specifically blood pressure has been normal heart rate has been normal. Afebrile. Exam unremarkable, neurologically was intact. States recently she was on antibiotics but was unable to finish them because she lost them. This was for a UTI, stating she still had some mild retained symptoms. Lab work today showed normal hemoglobin, no signs of infection. Kidney function was normal on her CMP and glucose was also normal. Though her urinalysis was contaminated, there was white blood cells, leukocyte, bacteria so we will continue Macrobid. She wanted ultrasound obtained to evaluate status of fetus, this was normal. Also her quantitative beta-hCG seems to align within her gestational age. EKG reviewed with physician was unremarkable. I spoke with on-call STEEL ERECTOR, Dr. Mccoy, who states that this episode likely physiological but needs to be closely followed up by her OB. I attempted to call patient's OB, Dr. Lemus, was unable to reach him however patient states she is going to try to set up an appointment tomorrow. I did give her strict return precautions, of which she verbalized understanding. Told her to rehydrate at home and return with any new or worsening. Lab Data 05/31/24 13:20 05/31/24 13:20 Radiology Impressions Ultrasound 05/31/24 15:57 IMPRESSION: 1. Intrauterine with an estimated gestational age 11 weeks 2 days, corresponding to an estimated delivery December 18, 2024. Laboratory Results WBC 9.40 10^3/uL (3.29-11.43) 05/31/24 13:20 RBC 4.50 10^6/uL (3.85-5.65) 05/31/24 13:20 Hgb 14.10 g/dL (11.27-16.99) 05/31/24 13:20 Hct 40.8 % (36-47) 05/31/24 13:20 MCV 90.7 fl (85-98) 05/31/24 13:20 MCH 31.3 pg (27-33) 05/31/24 13:20 MCHC 34.6 g/dL (30-55) 05/31/24 13:20 RDW 10.9 % (12.1-15.1) L 05/31/24 13:20 Plt Count 291 10^3/cmm (157-399) 05/31/24 13:20 MPV 9.5 fL (7.4-10.4) 05/31/24 13:20 Neut % (Auto) 74.7 % 05/31/24 13:20 Lymph % (Auto) 18.4 % 05/31/24 13:20 Pl[place] % (Auto) 6.1 % 05/31/24 13:20 Eos % (Auto) 0.2 % 05/31/24 13:20 Baso % (Auto) 0.1 % 05/31/24 13:20 Neut # (Auto) 7.02 10^3/uL (1.8-7.7) 05/31/24 13:20 Lymph # (Auto) 1.7 10^3/uL (0.8-4.8) 05/31/24 13:20 [place] # (Auto) 0.6 10^3/uL (0.2-0.9) 05/31/24 13:20 Eos # (Auto) 0.0 10^3/uL (0.0-0.8) 05/31/24 13:20 Baso # (Auto) 0.0 10^3/uL (0.0-0.1) 05/31/24 13:20 Nucleated RBC % (auto) 0 % 05/31/24 13:20 Nucleated RBCs # 0.0 /100WBC 05/31/24 13:20 Sodium 135 mmol/L (136-145) L 05/31/24 13:20 Potassium 4.2 mmol/L (3.5-5.1) 05/31/24 13:20 Chloride 98 mmol/L (98-107) 05/31/24 13:20 Carbon Dioxide 22 mmol/L (22-29) 05/31/24 13:20 Anion Gap 19.2 (5-19) H 05/31/24 13:20 BUN 10 mg/dL (6-20) 05/31/24 13:20 Creatinine 0.5 mg/dL (0.5-0.9) 05/31/24 13:20 GFR Calculation 155.7 mL/min (90-130) H 05/31/24 13:20 Glucose 78 mg/dL (65-115) 05/31/24 13:20 Calculated Osmolality 278 mOsm/kg (285-295) L 05/31/24 13:20 Calcium 9.4 mg/dL (8.5-10.5) 05/31/24 13:20 Total Bilirubin 0.7 mg/dL (0.15-1.2) 05/31/24 13:20 AST 16 U/L (0-32) 05/31/24 13:20 ALT 10 U/L (0-33) 05/31/24 13:20 Alkaline Phosphatase 53 U/L (35-105) 05/31/24 13:20 Total Protein 7.8 g/dL (6.6-8.7) 05/31/24 13:20 Albumin 4.6 g/dL (3.5-5.2) 05/31/24 13:20 Globulin 3.2 g/dL (1.3-4.6) 05/31/24 13:20 Ser , Semi-Qnt 31953.00 mIU/mL 05/31/24 13:20 Urine Color Dark yellow (Yellow) A 05/31/24 13:46 Urine Appearance Error (CLEAR) A 05/31/24 13:46 Urine pH 5.5 (5-7) 05/31/24 13:46 Ur Specific [place] 1.028 (1.005-1.030) 05/31/24 13:46 Urine Protein 1+ (Negative) A 05/31/24 13:46 Urine Glucose (UA) Negative (Normal) 05/31/24 13:46 Urine Ketones Trace (Negative) 05/31/24 13:46 Urine Blood Negative (Negative) 05/31/24 13:46 Urine Nitrate Negative (Negative) 05/31/24 13:46 Urine Bilirubin Negative (Negative) 05/31/24 13:46 Urine Urobilinogen 1.0 mg/dL (Negative) 05/31/24 13:46 Ur Leukocyte Esterase Trace (Negative) A 05/31/24 13:46 Urine RBC 3-5 /hpf (0-2) 05/31/24 13:46 Urine WBC 11-20 /hpf (0-5) H 05/31/24 13:46 Ur Squamous Epith Cells 11-20 /hpf (0-5) H 05/31/24 13:46 Amorphous Sediment Not Reportable 05/31/24 13:46 Urine Bacteria 1+ /hpf (NONE) H 05/31/24 13:46 Hyaline Casts 7.42 /lpf 05/31/24 13:46 Blood Type B Positive 05/31/24 13:20 Rho(D) Type Rh positive 05/31/24 13:20 Antibody Screen Negative 05/31/24 13:20 All radiology interpretation(s) finalized by discharge Discharge Plan Discharge Patient Disposition: Home Clinical Impression: Syncope Qualifiers: Syncope type: unspecified Qualified Code(s): R55 - Syncope and collapse Infection of urinary tract during Qualifiers: Trimester: first trimester Qualified Code(s): O23.41 - Unspecified infection of urinary tract in , first trimester Condition: Stable Prescriptions: New nitrofurantoin monohyd/m-cryst [Macrobid] 100 mg capsule 100 mg PO BID 10 Days Qty: 20 0RF Rx Instructions: must administer with a meal/food Discharge Orders: Discharge ED (Routine); Ordered 05/31/24 Ordered By: Karan Stauffer Referrals: Gianluca Lemus MD [Primary Care Provider] - Patient Instructions: Syncope (ED), Urinary Tract Infection in (ED) Activity Restrictions/Additional Instructions: Take Macrobid as prescribed. Follow-up with OB in the next day or 2 as discussed. Oral rehydration at home. Please note that if you have any further episodes of passing out, any onset of abdominal pain, any vaginal bleeding, or any other major concerns please return to the emergency department for reevaluation. Please also see the attached patient instructions for further education. Print Language: Cameroonian Coding Level of Care Code ED Roller Pneumatic for Vandana Calle
[2024-05-31 16:05] VITALS: BP 108/56; PULSE 90; RESP 18; O2SAT 100
[2024-05-31 16:14] LABS: Bacteria Urine 1+ /hpf; Hyaline Casts Urine 7.42 /lpf
[2024-05-31 16:28] LABS: Alanine Aminotransferase 10 U/L (0-33); Albumin Level 4.6 g/dL (3.5-5.2); Alkaline Phosphatase 53 U/L (35-105); Anion Gap 19.2 (5-19); Aspartate Amino Transferase 16 U/L (0-32); Blood Urea Nitrogen 10 mg/dL (6-20); Calcium 9.4 mg/dL (8.5-10.5); Carbon Dioxide 22 mmol/L (22-29); Chloride 98 mmol/L (98-107); Creatinine Clr Calc Pharmacy 144.0151; Globulin 3.2 g/dL (1.3-4.6); Glomerular Filtration Rate 155.7 mL/min (90-130); Glucose 78 mg/dL (65-115); Osmolality Calculated 278 mOsm/kg (285-295); Potassium 4.2 mmol/L (3.5-5.1); Sodium 135 mmol/L (136-145); Total Bilirubin 0.7 mg/dL (0.15-1.2); Total Protein 7.8 g/dL (6.6-8.7)
[2024-05-31 16:34] LABS: Add Urine Microscopic? YES; Bilirubin Urine Negative (Negative); Blood Urine Negative (Negative); Glucose Urine UA Negative (Normal); Ketones Urine Trace (Negative); Leukocyte Esterase Urine Trace (Negative); Nitrate Urine Negative (Negative); Protein Urine 1+ (Negative); Specific Gravity, Urine 1.028 (1.005-1.030); Urine Appearance Error (CLEAR); Urine Color Dark Yellow (Yellow); pH Urine 5.5 (5-7)
[2024-05-31 17:31] LABS: UA Slide Review UA Slide Review Perf
[2024-05-31 17:37] LABS: Add Urine Culture? No
[2024-05-31 18:01] VITALS: BP 98/62; PULSE 98; O2SAT 98
== END 2024-05-31 18:01 | disposition home or self-care (01) ==
PROVIDERS: Emergency Provider Physician Assistant; PCP Family Medicine
DX: R55 Syncope and collapse (principal); O23.41 Unspecified infection of urinary tract in pregnancy, first trimester; Z3A.11 11 weeks gestation of pregnancy
CPT/HCPCS: 36415; 76801; 80053; 81001; 84702; 85025; 86850; 86900; 93005; 99284

== ENCOUNTER 2024-10-11 08:55 | Outpatient (CLI) | payer BC, MEDICAID, SELFPAY ==
[2024-10-11 09:07] VITALS: BP 146/90; PULSE 81
[2024-10-11 09:16] VITALS: BMI 19.3
[2024-10-11 09:31] VITALS: BP 123/75; PULSE 79
== END 2024-10-11 09:39 | disposition home or self-care (01) ==
LOC: OPOB 08:55 → OBGYN 08:56
PROVIDERS: PCP Family Medicine; Visit Provider Family Medicine
DX: O99.419 Diseases of the circulatory system complicating pregnancy, unspecified trimester (principal); Z3A.00 Weeks of gestation of pregnancy not specified
CPT/HCPCS: 59025; 99211

== ENCOUNTER 2024-12-07 15:33 | Inpatient (IN) | payer BC, MEDICAID, SELFPAY ==
[2024-12-07] VITALS (62 sets, daily range): BP systolic 109–152; BP diastolic 59–101; PULSE 55–193; RESP 16–17; TEMP 35.9–36.9; O2SAT 94–100; BMI 20.2
[2024-12-07 14:33] LABS: Hematocrit 37.3 % (36-47); Hemoglobin 13.00 g/dL (11.27-16.99); Mean Corpuscular HGB Conc 34.9 g/dL (30-55); Mean Corpuscular Hemoglobin 32.0 pg (27-33); Mean Corpuscular Volume 91.9 fl (85-98); Nucleated Red Blood Cells % 0 %; Platelet Count 308 10^3/cmm (157-399); Red Blood Count 4.06 10^6/uL (3.85-5.65); White Blood Count 17.71 10^3/uL (3.29-11.43)
[2024-12-07] MEDS: fentaNYL 50 mcg/mL INJ 2mL IVP (14:42)
--- NOTE | 2024-12-07 15:16 | P.ANESASSM_ITS ---
Pre-Anesthetic Assessment Height/Weight: Height 1.78 m Weight 63.957 kg Temp Pulse Resp BP O2 Del Method 96.6 F L 77 16 152/91 Room Air 12/07/24 11:58 12/07/24 14:07 12/07/24 14:42 12/07/24 14:07 12/07/24 15:03 Epidural Familial anesthetic complications: None Was Beta Talia taken within 24 hours: N/A Was Clonidine taken within 24 hours: N/A Last intake: 1100 solid Social No alcohol and No tobacco Exam alert, oriented x 3, clear to auscultation bilaterally and regular rate & rhythm Airway Submandibular: within normal limits Cervical ROM: within normal limits Mallampati: Class II Dentition: chipped (Front upper tooth chipped) and full History/ROS No significant history except as noted and No significant complaints Pulmonary None reported CV/HEM None reported None reported Hepatic None reported GI Gastroesophageal Reflux Disease Metabolic None reported Musc/skel None reported Neuropsych Anxiety and Depression Anesthetic Plan ASA status: 2 Anesthesia: Anesthesia Evaluation, General and Regional (specify below) (Epidural) Risk of > 500 ml blood loss (7ml/kg in children): Yes, adequate IV access and fluids planned Medications/Allergies Home Medications ?Medication ?Instructions ?Recorded ?Confirmed ?Last Taken ?Type Vitamin 1 cap PO DAILY 10/11/2410/1610/10/24 History cefdinir 300 mg capsule 300 mg PO BID 10 days #20 ca ps 10/27/24 10/27/24 Unknown Rx fluticasone propionate 50 2 spray intranasal BID #16 g samuel 10/27/24 10/27/24 Unknown Rx mcg/actuation nasal spray,suspension (Flonase Allergy Relief) Allergies Allergy/AdvReac Type Severity Reaction Status Date / Time No Known Allergies Allergy Verified 10/27/24 10:46 Current Medications Generic Name Dose Route Start Last Admin Trade Name Freq PRN Reason Stop Dose Admin Fentanyl 25 - 100 mcg 12/07/24 14:09 12/07/24 14:42 Fentanyl 50 Mcg/Ml Inj 2ml IVP 25 mcg Q1H PRN Administration SEVERE PAIN Lactated Ringer's 1,000 mls @ 999 mls/hr 12/07/24 14:21 12/07/24 14:42 Lactated Ringers IV 999 mls/hr .Q1H1M PRN Administration See label comments [facility] Anesthesia Medical History Allergic rhinitis due to allergen Acute pharyngitis Allergic rhinitis due to allergen MDD (major depressive disorder) Generalized anxiety disorder No pertinent past medical history Surgical History No pertinent past surgical history Social History Smoking and tobacco/nicotine status: never used tobacco/nicotine Second hand smoke exposure: No Alcohol intake: never Substance/Drug Use: never Female Reproductive History : 1 Spontaneous abortions: No Data Anesthesia 12/07/24 14:15 Short CBC 12/07/24 Range/Units 14:15 WBC 17.71 H (3.29-11.43) 10^3/uL Hgb 13.00 (11.27-16.99) g/dL Hct 37.3 (36-47) % MCV 91.9 (85-98) fl Plt Count 308 (157-399) 10^3/cmm Neut % (Auto) 80.3 % Neut # (Auto) 14.23 H (1.8-7.7) 10^3/uL
[2024-12-07] MEDS: ROPivacaine premix 200 MG/100 ML PREMIX 10 MG EPIDURAL ×2 (15:44→20:22)
--- NOTE | 2024-12-07 15:52 | ANES.PROC ---
Anesthesia Procedures Procedure/Date: 12/07/24 Epidural: Time Out Performed: Yes Consents Signed: Procedure Consent and NPO Consent Consent: requested by attending/covering physician, from patient, risks and benefits reviewed and patient agrees to proceed Lumbar Level: L3-L4 Epidural position: sitting Epidural procedure: sterile prep of area (betadine), 1% lidocaine to numb the area (3 mLs), neg for paresthesia, test dose given, 1.5% xylocaine 1:200k epi (3 mLs/ 2 mLs), placed PCEA, no systemic response, sterile dressing applied, L.U.D. no apparent complications and 0.2% Ropiavacaine @ mls/hr (13) Additional Comments: TRISTIN 6cm, catheter threaded to 13cm. Negative aspiration for CSF and blood. Patient tolerated well. Patient educated on SALES AND MARKETING MANAGER button. Procedure performed by Lee MONTERO, with this SILVER HOLLOWARE ASSEMBLER at bedside. Called back to room due to patient complaining of pain despite SALES AND MARKETING MANAGER use. Patient complains of back and abdominal pain. 100mcg fentanyl via epidural and SALES AND MARKETING MANAGER button pushed. Patient states she had some relief. Contractions noted while in room, patient states they are better.
[2024-12-07] MEDS: ondansetron 2 mg/ML SDV 2 mL 4 MG IVP ×2 (16:28→21:44)
--- NOTE | 2024-12-07 17:40 | PM.OPHPUD ---
Labor & Delivery H&P Update Date of Procedure: December 07, 2024 Date H&P Performed: 12/06/24 Changes to previous documentation: On admission the patient was having consistent contractions and making cervical change. Admission Diagnosis: 24-year-old 1 at 38 weeks estimated gestational age Planned procedure: Spontaneous vaginal delivery Other information: The patient is a 38-week patient who presents to the hospital in active labor. She has had an unremarkable . She has had consistent care. She began having contractions several hours prior to coming to the hospital. Prior to coming to the hospital they progressively got more painful. Her blood type is B+. Her antibody screen is negative. She passed 2 glucose screen. She is rubella nonimmune. She is GBS negative. The remainder of her infectious disease profile is within normal limits Related Problem List Diagnoses 1. 38 weeks gestation of : A&P Assessment and plan 1. 38 weeks gestation of : I anticipate routine labor and spontaneous vaginal delivery. Status: Acute PDMP PDMP Reviewed: Not Reviewed
[2024-12-07] MEDS: oxytocin 30 UNIT/500 ML BAG 600 UNIT IV (22:11)
--- NOTE | 2024-12-07 22:26 | P.PCNOB_ITS ---
Delivery Note: Date of delivery: December 07, 2024 Pre-delivery diagnoses: 24-year-old 1 at 38 weeks estima lurdes gestational age presenting in active labor Post-delivery diagnoses: Status post vacuum-assisted vaginal delivery Procedure: Vacuum-assisted vaginal delivery Delivering Physician: Gianluca Lemus Estimated blood loss (mL): 75 Pre-Delivery Course: The patient presented to the hospital in active labor. An epidural was placed. An amniotomy was performed. She progressed to complete without difficulty. Delivery: DELIVERY: The patient progressed to complete without difficulty. After pushing for several minutes, the baby's heart rate dropped into the 60s and 70s and maintained the heart rate there over several contractions. As result the decision was made to assist with a vacuum. A soft mitchell Kiwi vacuum was used. He was placed on the baby's head and suction was applied up to the green zone. It was maintained in the baby's head for about 5 seconds to assist in helping to deliver the baby. He was then removed without difficulty. She delivered a male with a weight of 5 pounds 0 ounces with Apgars of 8, 9. The baby was delivered from the EMILY position and placed on the mother's abdomen. The cord was then clamped and cut at 1 minute of life. There was a nuchal cord x 2 which was reduced prior to delivery of the shoulders.. There was no meconium. The placenta and 3 vessel cord were delivered intact shortly thereafter. The perineum and vaginal vault were carefully examined. No lacerations were noted. Both the mother and the baby were in stable condition. Post-Delivery Status: Good History History History 1 Term 1 Miscarriages/Ectopic Living Children 1 A&P Assessment and plan 1. 38 weeks gestation of : I anticipate routine care. 2. Vacuum-assisted vaginal delivery: PDMP PDMP Reviewed: Not Reviewed Coding Level of Care Code Acute Code for Chg Fwd Diagnoses 38 weeks gestation of Z3A.38 Vacuum-assisted vaginal delivery Z37.9
[2024-12-08] VITALS (12 sets, daily range): BP systolic 110–139; BP diastolic 64–82; PULSE 65–95; RESP 16–17; TEMP 36.6–36.8; O2SAT 98–99
[2024-12-08] MEDS: PRENATAL VIT NO.130/IRON/FOLIC 1 EACH TABLET PO (05:39)
--- NOTE | 2024-12-08 08:00 | ANE.PACU2 ---
Inpatient post-anesthesia follow up: Airway intact: Yes Vital signs: Temperature 98.2 F Pulse Rate 91 Respiratory Rate 17 Blood Pressure 120/80 Pulse Oximetry 93 Oxygen Delivery Me thod Room Air Oxygen Flow Rate Fraction of Inspir ed Oxygen Hydration adequate: Yes Nausea and vomiting: No Pain level: 1 Mental status: Baseline Epidural Start/End: Epidural Start Date: 12/07/24 Epidural Start Time: 15:25 Epidural End Date: 12/07/24 Epidural End Time: 23:00
[2024-12-08 10:52] LABS: Hematocrit 35.2 % (36-47); Hemoglobin 12.50 g/dL (11.27-16.99); Mean Corpuscular HGB Conc 35.5 g/dL (30-55); Mean Corpuscular Hemoglobin 33.1 pg (27-33); Mean Corpuscular Volume 93.1 fl (85-98); Platelet Count 262 10^3/cmm (157-399); Red Blood Count 3.78 10^6/uL (3.85-5.65); White Blood Count 19.92 10^3/uL (3.29-11.43)
--- NOTE | 2024-12-08 22:03 | P.PN_ITS ---
CHEESEMAKING LABORER Subjective 2 Subjective: Interval history: The patient is doing well. Her pain is well-controlled. Her bleeding has been within normal limits. She is breast-feeding well. There have been no concerns. Labor: Station: +1 Amniotic Membrane Status: Intact Monitor Mode: Palpation Contraction Pattern: Regular Status: Category II Vitals/I&O/Wt Last Vital Signs Temp 98.0 F 12/08/24 21:00 Pulse 80 12/08/24 21:00 Resp 16 12/08/24 21:00 BP 117/77 12/08/24 21:00 Pulse Ox 98 12/08/24 21:00 O2 Del Method Room Air 12/08/24 21:00 Weight last 48 hrs Weight 141 lb Physical Exam 2 Narrative: The patient is alert. She appears comfortable. Her heart has a regular rate and rhythm with no murmurs appreciated. Lungs are clear to auscultation bilaterally. Her fundus is firm and below the umbilicus. Urinary Catheter Management: Rey Latex: Cath Placed During This Visit: yes, but has since been removed by the nurse Reason for Continuing Indwelling Catheter: Decision to DC Catheter Urinary Catheter Date of Insertion: 12/07/24 Urinary Catheter Time of Insertion: 17:25 Date Urinary Catheter Removed: 12/07/24 Time Urinary Catheter Discontinued: 21:45 Data 12/08/24 10:40 A&P Assessment and plan 1. Status post vacuum-assisted vaginal delivery: The patient is doing well. There were no concerns. I anticipate she will be discharged home tomorrow 2. 38 weeks gestation of : PDMP PDMP Reviewed: Not Reviewed Attestations 2 Medical Necessity Statement*: Routine care. Coding Level of Care Code Acute Code for Chg Fwd Diagnoses Status post vacuum-assisted vaginal delivery Z87.59 38 weeks gestation of Z3A.38
[2024-12-09] MEDS: PRENATAL VIT NO.130/IRON/FOLIC 1 EACH TABLET PO (04:27)
[2024-12-09 04:28] VITALS: BP 115/74; PULSE 85; RESP 16; TEMP 36.4; O2SAT 98
--- NOTE | 2024-12-09 10:13 | PM.OBGYDC ---
Discharge Providers CARDIOGRAPH OPERATOR Date of Admission: 12/07/24 15:33 Date of Discharge: 12/09/24 Attending Provider at Admission: Gianluca Lemus MD Attending Provider at Discharge: Gianluca Lemus MD Primary Care Provider: Gianluca Lemus MD Diagnoses at Discharge Discharge Diagnosis 1. Status post vacuum-assisted vaginal delivery: 2. 38 weeks gestation of : Reason for Visit Reason for Visit: contractions Hospital Course Hospital Course The patient presented to the hospital with contractions. An epidural was placed. An amniotomy was performed. She progressed to complete. While pushing, the baby had decelerations into the 60s and 70s which stayed through several contractions. As a result a vacuum was used to help assist in delivery. Her course has been unremarkable. Her pain has been well-controlled. Her bleeding has been within normal limits. Breast-feeding has been challenging at times. The nurses are continuing to work with her in that regard. She has started to supplement with formula. Information Peripartum Data: Infant Delivery Method: Vaginal Physical Exam Narrative: The patient is alert. She appears comfortable. Her heart has a regular rate and rhythm with no murmurs appreciated. Lungs are clear to auscultation bilaterally. Her fundus is firm and below the umbilicus. Urinary Catheter Management: Rey Latex: Cath Placed During This Visit: yes, but has since been removed by the nurse Reason for Continuing Indwelling Catheter: Decision to DC Catheter Urinary Catheter Date of Insertion: 12/07/24 Urinary Catheter Time of Insertion: 17:25 Date Urinary Catheter Removed: 12/07/24 Time Urinary Catheter Discontinued: 21:45 History History History 1 Term 1 Miscarriages/Ectopic Living Children 1 Discharge Data Studies Completed and Pending Laboratory Results WBC 19.92 10^3/uL (3.29-11.43) H 12/08/24 10:40 RBC 3.78 10^6/uL (3.85-5.65) L 12/08/24 10:40 Hgb 12.50 g/dL (11.27-16.99) 12/08/24 10:40 Hct 35.2 % (36-47) L 12/08/24 10:40 MCV 93.1 fl (85-98) 12/08/24 10:40 MCH 33.1 pg (27-33) H 12/08/24 10:40 MCHC 35.5 g/dL (30-55) 12/08/24 10:40 RDW 11.6 % (12.1-15.1) L 12/08/24 10:40 Plt Count 262 10^3/cmm (157-399) 12/08/24 10:40 MPV 10.1 fL (7.4-10.4) 12/08/24 10:40 Neut % (Auto) 80.3 % 12/07/24 14:15 Lymph % (Auto) 12.6 % 12/07/24 14:15 Conway % (Auto) 6.2 % 12/07/24 14:15 Eos % (Auto) 0.1 % 12/07/24 14:15 Baso % (Auto) 0.2 % 12/07/24 14:15 Neut # (Auto) 14.23 10^3/uL (1.8-7.7) H 12/07/24 14:15 Lymph # (Auto) 2.2 10^3/uL (0.8-4.8) 12/07/24 14:15 Conway # (Auto) 1.1 10^3/uL (0.2-0.9) H 12/07/24 14:15 Eos # (Auto) 0.0 10^3/uL (0.0-0.8) 12/07/24 14:15 Baso # (Auto) 0.0 10^3/uL (0.0-0.1) 12/07/24 14:15 Nucleated RBC % (auto) 0 % 12/07/24 14:15 Nucleated RBCs # 0.0 /100WBC 12/07/24 14:15 Blood Type B Positive 12/07/24 14:15 Rho(D) Type Rh positive 12/07/24 14:15 Antibody Screen Negative 12/07/24 14:15 Vitals Last Vital Signs Temp 97.5 F L 12/09/24 04:28 Pulse 85 12/09/24 04:28 Resp 16 12/09/24 04:28 BP 115/74 12/09/24 04:28 Pulse Ox 98 12/09/24 04:28 O2 Del Method Room Air 12/09/24 04:28 Results Labs OB ([facility]): Blood Type B Positive 12/07/24 Antibody Screen Negative 12/07/24 Hct, (36-47) 35.2 % L 12/08/24 Hgb, (11.27-16.99) 12.50 g/dL 12/08/24 Rho(D) Type Rh positive 12/07/24 Plt Count, (157-399) 262 10^3/cmm 12/08/24 TSH, (0.27-4.20) 0.74 uIU/mL 02/23/24 Ser , Semi-Qnt 83679.00 mIU/mL 05/31/24 Discharge Plan Discharge Patient Disposition: Home Condition: Stable Prescriptions: New ibuprofen 800 mg Tablet 800 mg PO TID Qty: 45 0RF Continued Vitamin 1 cap PO DAILY Discontinued cefdinir 300 mg capsule 300 mg PO BID 10 Days Qty: 20 0RF fluticasone propionate [Flonase Allergy Relief] 50 mcg/actuation spray,suspension 2 spray intranasal BID Qty: 16 0RF Rx Instructions: administer into each nostril Discharge Order = DC NOW: Discharge Order (Routine); Ordered 12/09/24 Ordered By: Gianluca Lemus Referrals: Gianluca Lemus MD [Primary Care Provider, [facility]] - 6 Weeks Discharge Diet: Usual diet Discharge Activity: Limit activity as instructed Patient Instructions: Opioid Safety, Patient Portal & Isabella Instructions Discharge Attestations CARDIOGRAPH OPERATOR Time Spent in Discharge Care*: less than 30 min Coding Level of Care Code Acute Code for Chg Fwd Diagnoses Status post vacuum-assisted vaginal delivery Z87.59 38 weeks gestation of Z3A.38
[2024-12-09 10:53] VITALS: BP 115/74; PULSE 90; TEMP 36.5; O2SAT 98
[2024-12-09 16:28] VITALS: BP 120/80; PULSE 91; RESP 17; TEMP 36.8; O2SAT 96
[2024-12-09 17:06] VITALS: BP 120/80; PULSE 91; RESP 17; TEMP 36.8; O2SAT 93
== END 2024-12-09 17:06 | disposition home or self-care (01) | DRG 807 ==
LOC: OPOB 15:33 → OBGYN 15:33
PROVIDERS: Admitting Provider Family Medicine; PCP Family Medicine; Visit Provider Family Medicine
DX: O77.0 Labor and delivery complicated by meconium in amniotic fluid (principal); Z37.0 Single live birth; Z3A.38 38 weeks gestation of pregnancy
CPT/HCPCS: 36415; 51702; 59025; 59409; 85025; 85027; 86850; 86900; 96374; 96376; 99211; J2405; J2590; J2795; J3010; J7120; J7121; J9999